=== PATIENT | female | born 1945 | race Caucasian/White ===

== ENCOUNTER 2020-11-20 13:16 | Emergency (ER) | payer OTHER ==
[~2020-11-20] VITALS: Ht 162.6 cm; Wt 40.8 kg
[~2020-11-20 13:16] MED LIST: AMLODIPINE BESYL5 MG PO; ASA5UEC PO; FISH OIL 1,0001 EAC5 PO; GLUCOSAMINE SU500 MG PO; MULTIVITAMINS PO; VITAMIN C 250250 MG PO
[2020-11-20 20:04] VITALS: BP 101/57
[2020-11-20] MEDS ORDERED: PLAVIX 75 MG TA75 MG PO (22:26)
[2020-11-20] MEDS ORDERED: VITAMIN C500 M2 PO (22:28)
[2020-11-20] MEDS ORDERED: VITAMIN D31250 MCG PO (22:30)
[2020-11-20] MEDS ORDERED: NORVASC10 MG PO (22:31)
--- NOTE | 2020-11-21 20:37 | H ---
[facility] [place] [address] HISTORY AND PHYSICAL Name: BECKY HOPKINS Room #: DEP Flip#: [id number] Admission: 11/20/20 Attend Phys: Discharge: 11/20/20 Date of : 41 Report #: [id number] THIS REPORT FOR: cc: Giovani Espinoza MD [facility] - Family physician unknown Rudi Ramos DO ~ DATE OF SERVICE: 11/20/2020 INPATIENT PSYCHIATRIC EVALUATION ATTENDING PSYCHIATRIST: Rudi Ramos DO. CALENDER WORKER HELPER: Sterling Miller MD and his hospitalist team. SOURCES OF INFORMATION: Very brief interview with the patient, medical records from [facility] where the patient was medically admitted and chart review from the ER here at [facility]. HISTORY OF PRESENT ILLNESS: This is a 75-year-old female, I believe she is . The patient was admitted, 11/15 at [place]. Reason for presentation at that time was complaints of urinary frequency. She has been up all night, generalized weakness, was feeling tired. In the ER at [place], she denied chest pain, abdominal pain, dysuria, fever, and shortness of breath. PAST MEDICAL AND SURGICAL HISTORY: Includes vocal cord cancer, treated in 2004; a broken right kneecap in 1998, vertigo 01/2014, TIA in 2010, shingles 09/2014, possible atrial fibrillation in the past, malnutrition. HOME MEDICATIONS: Include Plavix, vitamin C, cholecalciferol. Denies recreational drug use, alcohol use or smoking. REVIEW OF SYSTEMS: In the ER, denied fever or chills. EYES: Denies blurred vision. Denies double vision. HENT: Denies rhinorrhea. Denies sore throat. RESPIRATORY: Denies cough, denies wheezing. CARDIOVASCULAR: Denies chest pain, denies palpitations. GASTROINTESTINAL: Denies nausea and vomiting. GENITOURINARY: Denies hematuria. Denies dysuria. Reports urinary frequency. SKIN: Denies rash. Denies bruising. NEUROLOGIC: Denies seizures. Denies tremor. HEMATOLOGIC: Denies bruising. Denies bleeding. Was unable to complete my own review of systems due to the patient's consciousness level, she had gotten Maryan FLANAGAN [place] [address] HISTORY AND PHYSICAL Name: BECKY HOPKINS Luis Manuel Room #: [facility] Castelan#: [id number] Admission: 11/20/20 Attend Phys: Discharge: 11/20/20 Date of : 43 Report #: [id number] [place] to [facility]. Weight 40.82 kilos, height 165.1 cm, BMI is low at 14.1. EKG from [place] showed no ST elevation. Normal axis, rate of 56. ADDITIONAL INFORMATION: From Samara Cesar DO, is the patient had a CT abdomen and pelvis. There was no mesenteric visceral fat, possible constipation. Chest x-ray showed no acute cardiopulmonary disease. There were concerns from family about her ability to care for herself. Medications given at [facility] included vitamin C, cholecalciferol, ziprasidone, lorazepam, aspirin, Plavix, Rocephin. Medical problems include foot contusion, coccygeal injury, onychomycosis, orthostatic hypotension, patent foramen ovale, history of stroke. ALLERGIES: Include IODINATED CONTRAST MEDIA. LABORATORY DATA: Most recent laboratories from [place] on 11/17, H and H 11.5 and 34.1. White count 4.9, platelet count 194. Chemistries from 11/17, sodium 136, potassium 4.3, chloride 101, bicarbonate 27, anion gap 8, BUN 19, creatinine 0.6, estimated GFR 97, glucose 87, calcium 8.9, total bilirubin 0.5, AST 21, ALT 16, alkaline phosphatase 122. Ammonia less than 10. Total protein 6.7, albumin 3.0. TSH slightly high at 8.975. Free T4 normal at 0.98. Urinalysis from 11/15 was negative. It looks like there is a pending vanillylmandelic acid level, I guess they were looking for pheochromocytoma, I am not sure why that was ordered at [place]. COVID-19 PCR on was not detected. There is one being repeated here at [facility]. Urine culture from the was negative. Blood cultures from the were negative as well. DISCHARGE DIAGNOSES: Paroxysmal ventricular tachycardia resolved spontaneously. Cardiology was consulted. Lopressor was received, amlodipine discontinued. Moderate aortic insufficiency, unclear encephalopathy. Benito Griffin DO, was the physician discharging the patient. PHYSICAL EXAMINATION: VITAL SIGNS: Today, temperature 36.5, pulse of 63, respirations 18, BP 107/68. MUSCULOSKELETAL: Weak, cachectic, frail, wearing glasses, in hospital gown, on gurney. MENTAL STATUS EXAMINATION: This is a well-developed, ill-appearing female as described above. Attention and concentration both very limited. [facility] [address] [place] [address] HISTORY AND PHYSICAL Name: BECKY HOPKINS Room #: DEP ER Flip#: [id number] Admission: 11/20/20 Attend Phys: Discharge: 11/20/20 Date of : 43 Report #: [id number] Speech soft, slow, intermittent. Thought process linear and very limited. Thought content, poverty of thought due to medication effect. mood/affect- constricted, congruent No SI, HI, unable to assess well for auditory, visual, or tactile hallucinations. Memory is suspected to be impaired, insight impaired, judgment impaired. Fund of knowledge well below average. FORMULATION: A 75-year-old female transferred due to history of dementia, combativeness and inability to redirect at [facility]. DIAGNOSES: At this time, major neurocognitive disorder, etiology unspecified, with behavioral disturbance, numerous medical comorbidities including malnutrition, history of aortic insufficiency, paroxysmal ventricular tachycardia. PLAN: If COVID negative, admit to Geriatric Psychiatry. Evaluate, stabilize. Hospitalist will be consulted. I will start the patient likely on a low dose scheduled Haldol regimen 0.5 mg 3 times a day. We will see how she does on unit. ESTIMATED LENGTH OF STAY: 10-14 days. STRENGTHS: She is insured, some family support. WEAKNESSES: Advancing age, dementia and multiple medical morbidities. <ELECTRONICALLY SIGNED> By: Rudi Ramos DO 11/21/20 2037 [id number] Rudi Ramos DO /nt
== END 2020-11-20 20:04 ==
LOC: ER 13:16
PROVIDERS: Nurse Practitioner Family
DX: F91.1 Conduct disorder, childhood-onset type (principal); F91.9 Conduct disorder, unspecified; I10 Essential (primary) hypertension; Z90.49 Acquired absence of other specified parts of digestive tract; Z79.82 Long term (current) use of aspirin; Z79.899 Other long term (current) drug therapy; Z88.8 Allergy status to other drugs, medicaments and biological substances; Z91.040 Latex allergy status; Z91.041 Radiographic dye allergy status; Z20.822 Contact with and (suspected) exposure to COVID-19

== ENCOUNTER 2020-11-20 16:59 | Inpatient (IN) | payer OTHER ==
[~2020-11-20] VITALS: Ht 165.1 cm; Wt 35.4 kg
--- NOTE | ~2020-11-20 | HC ---
[facility] [place] [address] CONSULTATION Name: BECKY HOPKINS Room #: 526A-A ADM IN M.R.#: [id number] Admission: 11/20/20 Attend Phys: Rudi Ramos DO Discharge: Date of : 41 Report #: [id number] THIS REPORT FOR: cc: Giovani Espinoza MD, Dean L. MD Althoff, Jeffrey R. MD ~ DATE OF SERVICE: 11/23/2020 CHIEF COMPLAINT: Coccygeal pressure ulceration. HISTORY OF PRESENT ILLNESS: This is a 75-year-old female patient who was admitted to the [facility] for increasingly aggressive behavior. The patient has had a longstanding ulceration on the coccygeal region. It has been slow to heal. The patient thinks it has been there for over a year and states that no one has been able to make it feel better or resolve. The patient apparently is somewhat ambulatory and there is no other documentation that details the duration and history of treatment for this. The patient cannot provide a whole lot of other information about herself. PAST MEDICAL HISTORY: Positive for metabolic encephalopathy, dementia, hypertension, SVT, constipation, rheumatoid arthritis, elevated TSH, history of TIA. SOCIAL HISTORY: The patient apparently lives alone. Past history of alcohol use. Unknown drug or tobacco use. FAMILY HISTORY: Unknown. ALLERGIES: INCLUDE IODINATED CONTRAST AND LATEX. MEDICATIONS: Include amlodipine, ascorbic acid, aspirin, cholecalciferol, clopidogrel, fish oil, glucosamine, multivitamin and vitamin C. REVIEW OF SYSTEMS: Very limited due to the patient's willingness to cooperate with any questioning. All issues have been already addressed in the history of present illness. PHYSICAL EXAMINATION: VITAL SIGNS: At this time include temperature 36.4, pulse 52, respiratory rate 16, blood pressure 120/69. GENERAL: This is a somewhat chronically ill and underweight appearing female patient who appears to be in no distress. HEENT: Head normocephalic. Nose and throat clear. NECK: Supple. LUNGS: Diminished. [facility] [address] [place] [address] CONSULTATION Name: BECKY HOPKINS Room #: 526A-A ADM IN M.R.#: [id number] Admission: 11/20/20 Attend Phys: Rudi Ramos DO Discharge: Date of : 43 Report #: [id number] ABDOMEN: Soft, nontender. EXTREMITIES: Examination of the sacral-gluteal region demonstrates some scaling and some partial thickness skin injury to the coccygeal region that may be consistent with a stage 2 pressure ulceration based on today's appearance. This may have been deeper and may actually carry a higher staging, but no additional documentation is available for me to review at this time. This area is not infected. There is no exposure of subcutaneous tissue or deep structures at this time. NEUROLOGIC: The patient is moving symmetrically. Her level of orientation is very difficult to assess. LABORATORY DATA: Negative for COVID-19. No other laboratory studies have been ordered. CLINICAL IMPRESSION: 1. Stage II coccygeal pressure ulceration, possibly having been a higher stage at some point, although once again documentation not available. 2. Hypertension. 3. Dementia with behavioral change and aggressive behavior. 4. History of supraventricular tachycardia. 5. History of rheumatoid arthritis. 6. History of hypothyroidism. 7. History of transient ischemic attack. RECOMMENDATIONS: At this point in time, I think that a moisture barrier cream to the sacral-gluteal region would be appropriate. Offload as much as possible. She may require a cushion to be placed in her chair, so that we offload the area a bit better. She may be spending quite a bit of time while seated in a chair. She will need aggressive nutritional support and appears to be quite malnourished. I do appreciate being asked to see her in consultation. By: [id number] Laureano Quintanilla MD /nt
[2020-11-20 20:45] VITALS: BP 114/70
[2020-11-20 21:45] VITALS: BP 114/70
[2020-11-20] MEDS ORDERED: PLAVIX 75 MG TA75 MG PO (22:26)
[2020-11-20] MEDS ORDERED: VITAMIN C500 M2 PO (22:28)
[2020-11-20] MEDS ORDERED: VITAMIN D31250 MCG PO (22:30)
[2020-11-20] MEDS ORDERED: NORVASC10 MG PO (22:31)
--- NOTE | 2020-11-21 01:07 | NUR ---
PATIENT TRANSFERRED TO [facility] ED FOR COVID PCR FOR ADMISSION TO [facility] UNIT FOR AMS. PATIENT CAME BY STRETCHER AT 2014. SHE IS A/0X1. SHE IS CONFUSED. SHE WAS CALM AND HAPPY TO BE HERE SHE SAID. PATIENT USES CANE AT HOME AND PT WAS TRANSFERRED TO BED FROM STRETCHER WITH ASSIST X 2 FOR PT BALANCE. WAS ABLE TO TRANSFER WITH WALKER FROM BED TO BATHROOM. SHE HAD SLOW GAIT THAT WAS STEADY BUT SLIGHTLY UNSTEADY AT TIMES. SPOKE BY PHONE TO PATIENT'S NEPHEW, ROSA Issa WHEN I CALLED HIM TO LET HIM KNOW HOW PATIENT WAS DOING AND GET CONSENT FOR TREATMENT. HE STATES THAT IN FEBRUARY 2020 SHE FRACTURED HER RIGHT KNEE CAP AND HAD TO HAVE SURGERY FOR REPAIR. SHE WAS SENT TO [facility]RE[facility] FOR 1.5 MONTHS AND THEN WAS RECOMMENDED SHE GO TO ASSISTED LIVING. SHE WAS THERE FOR A SHORT TIME AFTER SHE DEMANDED HER NEPHEW TAKE HER BACK TO HER HOME. SHE HAS BEEN LIVING BACK AT HOME FOR LAST 3 MONTHS. SHE IS AND HE WAS RECENTLY PLACED OCTOBER 27 IN A CORRECTION [facility] WITH MEMORY CARE D/T DEMENTIA DIAGNOSIS. HER GOES BY THE NAME SPENCER. PATIENT HAS BEEN CALLING 911 3 TIMES OVER THE LAST MONTH TO HAVE THEM TAKE HER TO [facility] ED FOR VARIOUS COMPLAINTS. THIS LAST ONE SHE THOUGHT SHE HAD UTI AND SHE WAS DIAGNOSED WITH ONE. SHE WAS YELLING AND COMBATIVE AT [facility] ED AND WAS GIVEN GEODON 10 MG IM. SHE CAME TO US THE FOLLOWING DAY. SHE IS PLEASANT AND TALKS THAT SHE HAS WORKED FOR [employer] FOR 31 YEARS, ANOTHER TIME 39 YEARS. SHE'S TRYING TO FIND OUT IF SHE IS OFF WORK FOR VACATION OR DISABILITY. NEPHEW THINKS PATIENT WHO WAS ALWAYS YELLING AT HER AND MEAN TO HIM, BECAME LONELY AND SHE WAS MISSING HIM WHEN HE WAS GONE AND WANTING ATTENTION. HE THINKS PT HAS DEMENTIA TOO. HE STATES THAT THEY BOTH SEEMED TO SUNDOWN IN LATE AFTERNOONS. PATIENT HAS HISTORY OF AFIB, TIA,HTN,VOCAL CORD CANCER TREATED WITH RADIATION 2004. SHE HAD APPENDECTOMY A CHILD. PT STATES SHE HAS RHEUMATOID ARTHRITIS AND PAIN IN RIGHT LEG. SHE HAS MULTIPLE BRUISES ON ARMS, AND HAS SCABBED CUTS AT FINGER JOINTS ON MULTIPLE FINGERS ON EACH HAND. SHE CAN'T EXPLAIN HOW SHE GOT THEM. SHE ALSON HAS SCRATCH SULTANA ON LEFT THIGH. PATIENT IS 5'5". SHE APPEARS VERY MALNOURISHED AT 87.1#. NO SKIN BREAKDOWN ON BOTTOM NOTED. PATIENT STATED HER ROOM WAS HOT TO HER SO TEMP TURNED DOWN FOR COMFORT. VITALS 114/70, P 61, R 16, T97.1 02% 99 ON RA. PATIENT HAS CHRONIC PAIN IN RIGHT LEG AND DECLINED MEDICATION WHEN OFFERED. PAIN STEADY AT 4/10. LUNG SOUNDS DIMINISHED. HEART S1S2 HEARD, HX OF AFIB. ABDOMEN SOFT/NONTENDER. POSITIVE BOWEL SOUNDS X 4 QUADS. PATIENT SETTLED DOWN TO SLEEP. BED IN LOW POSITION AND BED ALARM ON. WALKER PLACED IN HER ROOM FOR HER USE. PATIENT'S CANE AND CELL PHONE ARE WITH NEPHMANOHAR LEE THAT TOOK THEM HOME FROM [facility].CONTINUING TO MONITOR.
--- NOTE | 2020-11-21 02:27 | NUR ---
PATIENT AWOKE AND WAS YELLING FROM HER BED. PATIENT DEMANDS TO SEE THE DOCTOR NOW AND SAYS HE WASN'T TO LEAVE THE HOSPITAL TILL HE HAD SEEN HER AND LET HER GO. SHE IS DEMANDING WE LET HER GO. SHE WAS YELLING, SHE WAS HALLUCINATING AND THINKS HER IS IN BED WITH HER. SHE IS SITTING UP IN HER BED YELLING FOR "SPENCER" TO GO GET THE CAR AND GET HER HOME. THEN SHE YELLS AT HIM AND STATES, HURRY UP AND WAKE UP!. WHEN I EXPLAINED TO HER THAT SPENCER WAS NOT HERE IN THE ROOM, SHE ASKED WHERE HE WAS. I EXPLAINED. SHE THEN LOOKED AT TOP OF HER BED AND SAID, "YOU [SPENCER] WERE TRYING TO HELP ME AND THEY GOT A HOLD OF YOU." PATIENT WAS YELLING AND DEMANDING THINGS AND THE CHANGING HER MIND AND ARGUING. SHE WAS SWINGING HER ARMS AND ESCALATING. CALLED AND OBTAINED ORDER FOR OLANZAPINE 5MG IM ONETIME. THIS WAS GIVEN WITH 3 PEOPLE PRESENT TO HELP HOLD ARMS AND LEGS. PT TOLERATED WELL. SHE STILL CONTINUED YELLING AND BEING HATEFUL TOWARDS STAFF. SAT WITH PATIENT AND REPOSITIONED HER AND PATIENT FELL ASLEEP EVENTUALLY SHOT MADE HER DROWSY. SHE CONTINUED TALKING WITH HER OUT LOUD. ROUTINE ROUNDS TO CHECK HER SAFETY AND STATUS. BED IN LOW POSITION AND BED ALARM IS ON. CONTINUING TO MONITOR.
[2020-11-21 09:11] VITALS: BP 108/69
[2020-11-21 09:32] VITALS: BP 108/69
--- NOTE | 2020-11-21 11:02 | NUR ---
1100 RESUMMED CARE FROM OVERNIGHT THIS AM, PATIENT IN DAY ROOM QUIET IN LANIE CHAIR. PATIENT ATE BREAKFAST TOOK MEDICATION WITHOUT INCIDENCE; PATIENT ALERT ORIENTED TO SELF. PATIENT UNABLE TO TELL ME ABOUT SI/HI/AH/VH AT PRESENT DUE TO COGNITION DO. PATIENTS ABDOMEN SOFT BOWEL SOUNDS PRESENT, PATIENTS LUNGS CLEAR. PATIENT CALM, QUIET WILL CONTINUE TO MONITOR TO MONITOR PATIENT FOR SAFETY AND BEHAVIORS.
[2020-11-21 19:18] VITALS: BP 98/66
[2020-11-21 20:20] VITALS: BP 98/66
--- NOTE | 2020-11-22 02:57 | NUR ---
PATIENT UP IN LANIE CHAIR IN DINING ROOM THIS EVENING. WHEN I WENT TO SPEAK TO ANOTHER PATIENT SITTING ON OTHER SIDE OF TABLE FROM HER, PT BEGAN TELLING ME TO GET AWAY FROM THAT PATIENT AND LEAVE HER ALONE. SHE DOESN'T NEED YOUR HELP. STAY AWAY FROM HERE. STAY AWAY FROM ME. PATIENT WOULD YELL AND CUSS AT ANYONE IN HER RANGE OF SITE NEAR HER. SHE AT THIS POINT IS A/0X1-2. AT HS SHE DID TAKE NEW PO ORDER FOR HALDOL. SHE INSISTS IT IS HER BLOOD THINNER. SHE TOOK THE PILL BUT WAS SO AGITATED THAT SHE HAD PROBLEMS USING HER CRIPPLED FINGERS TO TAKE HER MED AND SHE WAS VERY FIDGETY. SHE REFUSED HELP, BUT SHE DID FINALLY GET THE PILL AND SWALLOW IT. SHE CALMED DOWN WITHIN AN HOUR AND WAS PLEASANT AND SWEET AND SMILING AND INTERACTIVE WITH THIS NURSE AND CALM. THEN AROUND 2300 PT BEGAN GETTING MORE CONFUSED AND AGITATED. SHE WAS TOILETED AND MADE COMFORTABLE. SHE WANTED TO DISAGREE WITH EVERYTHING PEOPLE SAID AND WAS RESTLESS. SHE WAS REFUSING TO GO TO BED AND SHE WAS HALLUCINATING AND TALKING TO HER AND OLD NEIGHBORS. OLANZAPINE 2.5MG GIVEN AND SHE TOOK IT BY MOUTH WITHOUT MUCH ISSUE. SHE EVENTUALLY CALMED AND WAS MOVED TO HER BED. PT RESTING WITH EYES CLOSED AND SIDERAILS UP X4 FOR SAFETY. BED IN LOW POSITION AND BED ALARM ON.
[2020-11-22 11:08] VITALS: BP 122/79
--- NOTE | 2020-11-22 12:27 | NUR ---
PATIENT WAS IN DAYROOM SITTING IN [facility] WHEN CARE ASSUMED THIS MORNING. PATIENT IS ALERT, AND ORIENTED X 1-2, SHE IS FORGETFUL, PLEASANTLY CONFUSED. PATIENT TOOK MORNING MEDICATION WHOLE WITHOUT DIFFICULTY, SHE IS EATING MEALS, AND DRINKING FLUID FAIRLY WELL, ABLE TO FEED SELF. PATIENT DENIES SUICIDAL/HOMICIDAL IDEATION, NOT ABLE TO APPROPRIATELY RESPOND TO FURTHER ASSESSMENT QUESTIONS DUE TO COGNITIVE IMPAIRMENT. PATIENT IS DELUSIONAL, "THEY STOLE MY CHECK BOOK, I WANT YOU TO CALL [facility] THAT'S WHERE I WORK. WE SHOULDN'T STAY TONIGHT TRAFFIC IS GOING TO KILL US". PATIENT NOTED RESPONDING TO INTERNAL STIMULI, TALKS TO SELF, AND UNSEEN OTHERS. AFFECT IS FLAT/BLUTED, MOOD IS CALM. NO AGITATION OR AGGRESSIVE BEHAVIOR NOTED AT THIS TIME. PATIENT IS CONTINENT OF B&B, KNOWS WHEN TO GO TO BATHROOM, TOILED BY STAFF. NO SIGN OF ACUTE DISTRESS NOTED AT THIS TIME, WILL MONITOR FOR SAFETY.
[2020-11-22 19:32] VITALS: BP 107/73
--- NOTE | 2020-11-22 23:21 | NUR ---
Alert and orientated to name only. Awake with alot of confused, delusional speech. At times she is coherent. Expressing dislike/distrust of "black people". Also states she feels rushed and c/o being hurried. Adamantly denies SI/HI. Breath sounds clear. Reg HR auscultated. Color pink with brisk capillary refill and palpable peripheral pulses. Initial O2 sat documented as 84%, taken again at 2310 O2 sat 96%. Large amt yellow urine per brief and pad. Active bowel sounds over soft, flat abdomen. Small amt breakdown on coccyx, cleaned, photgraphed and zpaste applied. Sitting in gerichair in dining room watching TV. Ate 100% of yogurt for PM snack. 2315 Remains awake in dining room. Dr. Ramos notified of wound and wakefulness. Additional Trazodone given and wound consult placed per order. Ate additional container of yogurt with meds. Requesting shipley, eggs and pancakes for breakfast. No s/o distress.
[2020-11-23 10:05] VITALS: BP 120/69
--- NOTE | 2020-11-23 13:41 | NUR ---
VERA and Dr. Greco participated in a family meeting with the Pt's DPOA, Gregory Felton [phone]. Update given on the Pt and medications reviewws. reccomendation for LTC given. Information concerning visitation discussed. Gregory is in agreement with a placement and did not have any specific facilities in mind. Vera will continue to follow
--- NOTE | 2020-11-23 14:53 | NUR ---
INITIALLY THIS AM WAS COOPERATIVE AND PLEASANT WITH THIS NURSE-ALLOWED AM PHYSICAL ASSESSMENT AND DID TAKE AM MEDS WITHOUT RESISTANCE-STATES SHE DOESN'T NEED TO BE HERE BUT IS COMPLIENT WITH REQUESTS FROM NURSING STAFF.WHEN ASKED WHY SHE WAS HERE STATES "I DON'T KNOW ITS A MISTAKE I, LEAVING TODAY"ATE BREAKFAST WITH SET UP ONLY. ORIENTED TO NAME-AWARE SHE IS IN HOSPITAL BUT UNABLE TO ID NAME OF HOSPITAL. WAS SEEN FOR WOUND CARE CONSULT ORDERS RECEIVED TO REPOSITION ON SIDE Q 2 HOURS-WHEN APPROACHED AND INFORMED MD WANTED HER TO LAY DOWN BECOMES AGITATED-YELLING LOUDLY "TELL THAT DR Rahman HAD MY SURGERY TWO YEARS AGO AND THEY WOULDN'T SEE ME SO THEY ARE SULEMA I DON'T ARIAN THEM"REFUSES TO LAY DOWN ON BED STATING "YOU ALL WOULD LOVE TO GET ME IN MY ROOM AWAY FROM EVERYONE THAT WAY YOU CAN HIT ME SOME MORE" POPINTS TO BRUISING ON ARMS STATING "THAT IS WHAT YOU GANG OF THUGS DID TO ME YESTERDAY" WHEN ATTEMPTING TO PLACE CUSHION IN CHAIR STRIKING OUT AT STAFF-ACCUSING STAFF OF HURTING HER DURING TRANSFER TO STANDING POSITION-"YOU CUT ME WITH YOUR JEWERLY" OF WHICH STAFF IS NOT WEARING.DID TAKE 1500 HALDOL WHEN APPROACHED BUT REMAINS VERY ANGRY-STATING TO THIS NURSE "OPEN IT UP AND GIVE IT TO ME I HAVE PLACES TO BE STOP STANDING THERE LOOKIING LIKE A STUPID BITCH"
[2020-11-23 19:37] VITALS: BP 119/83
--- NOTE | 2020-11-24 04:55 | NUR ---
RECEIVED CARE OF THIS PATIENT AT 1900. PATIENT ALERT AND ORIENTED TO SELF ONLY. PATIENT AGGRESSIVE AND HOSTILE. DID NOT WANT ASSESSMENT DONE, WAS DONE WITH PATIENT PROTESTING. HITTING AT NURSE. DENIES PAIN. SLEPT IN LANIE-CHAIR.
[2020-11-24 09:56] VITALS: BP 144/73
--- NOTE | 2020-11-24 14:00 | NUR ---
Alert and orientated to person and place. Calm, cooperative and compliant at times, at other times she is verbally aggressive, attempting to get out of chair and demanding. Denies SI/HI. Breath sounds clear. Reg HR auscultated. Color pink with brisk capillary refill and palpable peripheral pulses. No edema. Continent of yellow urine per commode X 2 this AM. Active bowel sounds over soft, flat abdomen. Wound per coccyx healing, cleaned with wound cleanser and Z paste applied. Lap perlita in place for safety. Currently sitting in chair without s/o distress.
[2020-11-24 19:28] VITALS: BP 144/73
--- NOTE | 2020-11-25 05:47 | NUR ---
RECEIVED CARE OF THIS PATIENT AT 1900. PATIENT ALERT AND ORIENTED TO SELF ONLY. DID NOT WANT TO TAKE MEDS FOR NURSE AT FIRST BUT AFTER TALKING TO PATIENT FOR A FEW MINUTES THE PATIENT TOOK HER MEDS. NOT OTHER BEHAVIOR ISSUES WERE NOTER THIS SHIFT. SLEPT MOST OF SHIFT.
[2020-11-25 08:29] VITALS: BP 144/69
--- NOTE | 2020-11-25 12:54 | NUR ---
Alert and orientated to person and place. Cooperative but very irritable in AM, sleeping in gerichair most of morning and early afternoon. Independent with brushing her teeth and combing her hair. Compliant with meds. Breath sounds clear with slightly congested cough. Reg HR auscultated. Color pink with brisk capillary refill and palpable peripheral pulses. Clear yellow urine per commode. Active bowel sounds over soft, flat abdomen. Able to bear weight and assist with transfer. Currently sleeping in gerichair without s/o distress.
[2020-11-25 18:53] LABS: BE(vivo) 1.5 mmol/L (-2 to +3); HCO3 24.8 mmol/L (22.0-26.0); PCO2 34.8 mmHg (35.0-45.0); PO2 73.7 mmHg (80.0-100.0); pH 7.471 (7.360-7.450); sO2 95.7 % (92.0-98.0)
[2020-11-25 19:06] LABS: HEMATOCRIT 35.4 % (37.0-47.0); HEMOGLOBIN 11.7 gm/dL (12.0-15.0); MCH 31.7 pg (26.0-34.0); MCHC 33.1 g/dL (28.0-37.0); MCV 95.6 fL (80.0-100.0); RBC 3.7 mil/uL (4.20-5.00); RDW 16.1 % (10.5-14.5)
[2020-11-25 19:13] LABS: ANION GAP 7 mmol/L (7-16); BUN 30 mg/dL (7-18); CALCIUM 9.3 mg/dL (8.5-10.1); CHLORIDE 100 mmol/L (98-107); CO2 27 mmol/L (21-32); CREATININE 0.7 mg/dL (0.6-1.0); GLUCOSE 151 mg/dL (74-106); POTASSIUM 4.5 mmol/L (3.5-5.1); SODIUM 134 mmol/L (136-145)
[2020-11-25 19:23] LABS: ALBUMIN 3.3 g/dL (3.4-5.0); SGOT 23 U/L (15-37); SGPT 17 U/L (14-59); TOTAL PROTEIN 7.3 g/dL (6.4-8.2); TROPONIN-I <0.06 ng/mL (<0.06)
--- NOTE | 2020-11-25 19:51 | NUR ---
Pt. became tachy & decreased O2 sats-VEHICLE DISMANTLER activated. See flowsheet
[2020-11-25 20:05] VITALS: BP 138/66
--- NOTE | 2020-11-25 21:53 | NUR ---
1800--Pt. sleeping in gerichair most of day. AIR INTERCEPT CONTROLLER SUPERVISOR reported that she did not want to eat dinner. Pt. irritated, refusing to eat, pushing fork away from face stating she wants to lay down. Brought back to room and placed in bed with assistance. Incontinent of large amt yellow urine per brief and pad. Changed and wound care done. Pt. stating that she wants to be left alone. Went back to room several minutes later to take VS and administer tylenol. Pt. slightly dusky, HR 130s-140s with BP 80s/50s. RR 30s with some periodic breathing and moist, coarse breath sounds. O2 sats low 80s on RA. 3 L FIO2 placed per NC with increase in O2 sats to low 90s and improvement in color--now pale pink. Extremities cool with 3-[address] Pippa garcia to come to unit to assess pt. HR continues to be between 130-140
--- NOTE | 2020-11-25 22:15 | NUR ---
1900 Pt continues with HR 140s, with variable resp rate from 20-40 with some periodic breathing. Pt. continues to have weak, rattling cough. O2 sats high 80s, low 90s. Perfusion continues to worsen. Rapid response called. Pt. placed on nonrebreather at 14L FIO2. Labs, ABG and CXR done. Dr. Das to speak with Dr. Ramos and family about how to proceed with treatment--move to ICU or place on hospice. Pt. currently DNR. Pt. incontinent of urine and passing flatulence. Intermittently agitated and stating "leave me alone". After Dr. Das left room to speak with Dr. Ramos pt asked, "What did he say?" Explained hospice vs transfer to medical floor. Pt repeatedly stating "Leave me alone." #22 g jelco placed per L forearm, withdraws and flushes without difficulty. NS hung and infusing at 125 cc/hr. 1999 Dr. Ramos called, states placing pt on comfort care. BP increased to 127/80 with HR decreased to 70s. Pt with RR in 20s with less distress and quieter breathing. Dr. Ramos notified of change. 2099 Pt. appears to sleep with no overt s/o distress. FIO2 continues at 14L per nonrebreather facemask. Dr. Ramos called to clarify comfort care orders. Meds dced and IV dced per order. Will continue on FIO2 and meds to maintain comfort. 2229 Pt. sleeping. No change in status.
[2020-11-26] VITALS (7 sets, daily range): BP systolic 96–118; BP diastolic 58–72
--- NOTE | 2020-11-26 01:13 | NUR ---
Assumed care on 11/26/20 @ 0001, noted to be in bed with oxygen @ 10L via nonrebreather mask. VS 100/69 145 99 oF 75%SpO2 20. Pedal pulses present, no mottling noted to lower extremities. [place]ia noted to neck. sleeping calmly with no distress noted. Answers simple questions with yes/no answers. Hands are cool, feet are warm with 3-4 second cap refill noted.
--- NOTE | 2020-11-26 04:58 | NUR ---
Patient has been resting in bed. Patient incontinent of large amount of yellow urine. Ginny care provided, barrier cream applied, linens changed. Patient was able to wake up to state she was hot. Blankets removed and covered with sheet only. Patient re-positioned to left side. Extremities hot to the touch. Petechiae observed around frontal neck. No mottling observed at this time. Patient 82% on 10L O2 non-rebreather mask. BP 96/72, HR 146, Resp 24. When asked if patient was having pain, patient stated "just hot". Required total assist with turning and re-positioning x2 staff. Currently waiting for call back from Dr. Ramos.
--- NOTE | 2020-11-26 14:31 | NUR ---
[facility] received a call from KAYLA Singh informing that patient needs to be evaluated for hospice. She and Dr. Ramos spoke to Gregory and provided an update. [facility] later spoke to Gregory who informed his preference for hospice is [facility] [phone] (Intake Nurse Padma [phone]) fax [phone]. SW sent referral. They are sending an RN to evaluate pt today between 1330 and 1600. [facility] spoke to Gregory about the need for a community DNR in order to transport patient to [facility]. Gregory expressed an understanding and stated he would come to the hospital to sign it. SW team will remain available.
--- NOTE | 2020-11-26 16:05 | NUR ---
HAS DENIED ANY CO PAIN/DISCOMFORT SO FAR THIS SHIFT-REPOSITIONED Q2 AND NO NOTED FACIAL GRIMACING MUSCLE TENSION OBSERVED -INCONTINENT OF URINE X1 EARLY THIS AM AND VOIDED SMALL AMOUNT DK YELLOW URINE VIA BEDPAN.IS VERBAL ASKING FOR HER CELL PHONE TO CALL HER WORK PLACE AND TELL THEM SHE WOULDN'T BE IN.BECAME MILDLY AGITATED WHEN ATTEMPTED TO REORIENT TO CURRENT SITUATION-"YOU DON'T KNOW ABOUT ME STUPID"ATIVAN 0.25MG GIVEN PO PRN AT 1200 FOR INCREASED RESTLESSNESS-ATTEMPTING TO GET OUT OF BED -REFUSING TO WEAR O2 OR ALLOW CARES,ASSESSMENTS,WATER OR VS. DID CALM AFTER APPROX 5-10 MINUTES AND ALLOWED REPOSITIONING AND INCONTINENT CARE AND TOOK PO ICE CHIPS/COLD WATER VIA SPOON.ZGUARD APPLIED TO REDDENED AREA ON COCYX . CONTINUES TO HAVE ELEVATED SD RANGING FROM 128-150-DR GARCÍA AWARE.O2 2 LITERS PER NC IN SHORT INTERVALS WHEN STAFF ABLE TO SIT AT BEDSIDE WITH HER. REMOVED WHEN STAFF OUT OF ROOM. ONLY COMPLAINT IS THAT OF PHLGEM IN THROAT-GIVEN TISSUES AND BASIN TO SPIT INTO AND DID HAVE SMALL AMOUNT THICK YELLOW PHLGEM. SCOPALAMINE PATCH APPLIED PER ORDER.
--- NOTE | 2020-11-26 19:34 | NUR ---
DID EAT APPROX 3/4 CONTAINER OF STRAWBERRY JELLO AND TAKING SPOONFULS OF H20 AND SPRITE-ATIVAN 0.25MG GIVEN SL PRN AT 1745 FOR INCREASED RESTLESSNESS-STAFF HAD JUST EXITED ROOM FROM PROVIDING INCONTINENT CARE AND TURNED ONTO LEFT SIDE-HAD BEEN MILDLY RESISITVE WITH CARES PROVIDED-UPON STAFF EXITING ROOM BED ALARM SOUNDS AND NOTED TO BE ATTEMPTING TO GET OUT OF BED STATING "I AM GOING HOME"
--- NOTE | 2020-11-27 02:33 | NUR ---
PATIENT HAS BEEN IN BED SINCE BEGINNING OF SHIFT AT 1900. SHE HAS APPEARED CALM BUT STATES SHE ANXIOUS WHEN ASKED. SHE WAS GIVEN LORAZEPAM INTENSOL 0.5MG ONCE SO FAR THIS SHIFT. HAVE CHANGED PATIENT POSITIONS TO KEEP PT OFF BUTTOCKS D/T REDDNING BUT PATIENT MOVES HERSELF BACK TO WHERE SHE IS COMFORTABLE. INCONTINENCE CARES DONE TONIGHT NEEDED. SHE IS NOT VOIDING MUCH. ENCOURAGED WATER BUT CAN ONLY TOLERATE TONIGHT BY SPOON IN SMALL AMOUNTS. PATIENT RESTING AT THIS TIME. IT APPEARS TO BE TOO MUCH EFFORT TO TALK MUCH AND SHE HAS BEEN SPEAKING AT WHISPER LEVEL TONIGHT. TEMP WAS 99.5 THIS EVENING. BP 112/58. PATIENT IS DENYING PAIN. ROUTINE ROUNDS TO ASSESS SAFETY AND STATUS OF PATIENT. BED IN LOW POSITION. SIDE RAILS UP FOR SAFETY AND BED ALARM IS ON. CONTINUING COMFORT CARE. HOSPICE TO REEVAULATE PATIENT TODAY.
--- NOTE | 2020-11-27 07:10 | EKG ---
[address] [place] [address] ELECTROCARDIOGRAM REPORT Name: CARLIN HOPKINSDEJON Issa Room #: 526A-A [facility] [place] .R.#: [id number] Admission: 11/20/20 Attend Phys: Rudi Ramos DO Discharge: Date of : 41 Report #: [id number] [facility] Test Date: 2020-11-26 Test Time: 07:33:38 Pat Name: BECKY HOPKINS Department: Room: [facility] A Gender: F Ring Sorter: KARLY : 1945 Requested By: Mihir Das Order Number: [id number] MD: Sanket De Jesus Measurements Intervals [place] Rate: 148 P: [place]: QRS: -44 QRSD: 92 T: 183 QT: 264 QTc: 415 Interpretive Statements Supraventricular tachycardia Ischemic changes lateral leads Left axis deviation Probable anterior infarct, old Repolarization abnormality, prob rate related No previous ECG available for comparison Electronically Signed On 11-27-2020 7:10:02 CDT by Sanket De Jesus [email or web address] <ELECTRONICALLY SIGNED> By: Sanket De Jesus MD, [facility] 11/27/20 0710 0733 2 Sanket De Jesus MD, FAC /EPI
[2020-11-27 09:35] VITALS: BP 119/79
--- NOTE | 2020-11-27 11:48 | NUR ---
HAS BEEN REPOSITIONED EVERY 2 HOURS FOR COMFORT-INCONTINENT OF SMALL AMOUNT ANT COLORED URINE-SLIGHTLY RESISITVER WITH INCONTINENT CARE-REQUIRES TWO STAFF-WOUND CARE COMPLETED TO REDDENED AREA ON MIDLINE COCYX-ZGUARD APPLIED. ROLF LEE AT BEDSIDE MAJORITY OF AM AND DC INSTRUCTIONS REVIEWED WITH HIM HE DENIES QUESTIONS OR CONCERNS-REPORT CALLED TO [facility] [phone] .HAS BEEN TAKING SPOONFULS OF WATER AND ICE CHIPS -CONTINUES TO DENY PAIN/DISCOMFORT -EPISODES OF RESTLESSNESS,REACHING AT UNSEEN OBJECTS IN AIR AND ATTEMPTING TO VERBALIZE TO THIS NURSE-ANXIOUS FACIAL EXPRESSION-ATIVAN 0.5MG GIVEN SL WITH GOOD RESPONSE AT APPEARS TO BE RESTING QUIETLY AT THIS TIME. RESPIRATIONS EVEN AND REGULAR-OCCASSIONAL LOOSE COUGH 02 SAT 91 PERCENT ON RA.
--- NOTE | 2020-11-27 12:53 | NUR ---
PT DISCHARGED VIA STRETCHER ACCOMPNIED BY [facility] STAFF.PERSONAL BELONGINGS SENT. IS SOMULENT BUT AROUSABLE TO VERBAL STIMULI AT TIME OF DC.DENIES PAIN-CLOTHING CHANGE AND INCONTINENT CARE COMPLETED PRIOR TO DC.
--- NOTE | 2020-11-29 21:36 | D ---
[facility] [address] [place] [address] DISCHARGE SUMMARY Name: BECKY HOPKINS Room #: 526A-A [facility] [place] M.R.#: [id number] Admission: 11/20/20 Attend Phys: Rudi Ramos DO Discharge: 11/27/20 Date of : 41 Report #: [id number] THIS REPORT FOR: cc: Giovani Espinoza MD, Dean L. MD Kerstein,Rudi Jordan DO ~ DATE OF SERVICE: 11/27/2020 INPATIENT PSYCHIATRIC DISCHARGE SUMMARY ATTENDING PSYCHIATRIST: Rudi Ramos DO. FRUIT LOADER: Mihir Das MD ADDITIONAL LIME TRIMMER: Dr. Hidalgo for pressure ulcer on her coccyx. Additional morbidities include protein-calorie malnutrition, severe BMI of 13. DISCHARGE DIAGNOSES: Major neurocognitive disorder due to Alzheimer disease with behavioral disturbance, improved. The patient is end-of-life with decreased responsiveness, tachycardia, likely electrolyte imbalance. The patient will be discharging to the [facility] house less than 2 weeks life expectancy, comfort feedings. Her nephew and LESTER Gregory was quite involved in this admission. Her is a resident of [facility] and he is in ill health. DISCHARGE MEDICATIONS: Will be per the [facility]. ACTIVITY LEVEL: The patient is bedridden and q. 2-hour turning recommended if in discomfort. REASON FOR ADMISSION: Back on the or so november is as follows, 75-year-old female, , admitted to [facility] on 11/15/2020 with complaints of urinary frequency. Apparently, the patient had had continued agitation, delirium versus dementia, so she was transferred for psychiatric evaluation. HOSPITAL COURSE: The patient was admitted to the Geriatric Psychiatry Unit, did have a fair amount of impulsivity, agitation the first several days. I elected to treat her with scheduled olanzapine regimen, backed up by injection. She had been on Trileptal, which was discontinued and should have added prior to going to olanzapine regimen, I had her on scheduled Haldol regimen, which she did not think was that effective. Unfortunately, the patient got into failure to thrive situation. Rapid response was called, I believe Friday evening on her. I had discussions with Dr. Das. We believe that aggressive medical care would be futile. This was discussed with her DPOA Gregory who recommended [facility]osp[facility] [address] [place] [address] DISCHARGE SUMMARY Name: SANDEEPBECKY Room #: 526A-A [facility] [place] .Bill#: [id number] Admission: 11/20/20 Attend Phys: Rudi Ramos, DO Discharge: 11/27/20 Date of : 41 Report #: [id number] consultation. She was initially seen on and this decision is deferred to 11/27/2020, [facility] came out and accepted her for hospice house. PHYSICAL EXAMINATION: VITAL SIGNS: At time of discharge, temperature 35.6, pulse 43, respirations 15, BP 119/79, O2 sat 94% on room air. MUSCULOSKELETAL: Cachectic, bedridden and stating she did not want to be bothered to me. MENTAL STATUS EXAMINATION: This is a well-developed, ill, cachectic appearing female appearing older than stated age. Attention limited. Concentration limited. Speech soft, normal rate. Thought process linear and very limited. Thought content focused, still not being disturbed. No SI, no HI. No auditory, visual, or tactile hallucinations. Memory known to be impaired, insight impaired, judgment impaired. Fund of knowledge diminished. PROGNOSIS: For this patient is terminal and discharged to hospice house. <ELECTRONICALLY SIGNED> By: Rudi Ramos DO 11/29/20 2136 [id number] [id number] Rudi Ramos DO /nt
== END 2020-11-27 12:30 | disposition hospice, inpatient (51) | DRG 56 ==
LOC: SBH 16:59
PROVIDERS: Internal Medicine; ADMIT Psychiatry & Neurology Psychiatry; ATTEND Psychiatry & Neurology Psychiatry
DX: G30.9 Alzheimer's disease, unspecified (principal); F02.81 Dementia in other diseases classified elsewhere, unspecified severity, with behavioral disturbance; G93.41 Metabolic encephalopathy; E43 Unspecified severe protein-calorie malnutrition; Z68.1 Body mass index [BMI] 19.9 or less, adult; I10 Essential (primary) hypertension; M06.9 Rheumatoid arthritis, unspecified; E03.9 Hypothyroidism, unspecified; Z51.5 Encounter for palliative care; L89.152 Pressure ulcer of sacral region, stage 2; Z86.73 Personal history of transient ischemic attack (TIA), and cerebral infarction without residual deficits; Z74.01 Bed confinement status; Z79.899 Other long term (current) drug therapy; Z85.21 Personal history of malignant neoplasm of larynx; Z91.041 Radiographic dye allergy status; Z91.040 Latex allergy status
CPT/HCPCS: 10880